=== PATIENT | male | born 1945 | race American Indian/Alaskan Native ===

== ENCOUNTER 2020-07-02 15:15 | Emergency (ER) | payer MEDICARE ==
[~2020-07-02] VITALS: Ht 175.3 cm; Wt 77.1 kg
[2020-07-02 15:24] VITALS: BP 129/61
[2020-07-02] MEDS ORDERED: ERYTHROMYCIN E3.5 G2 OPHTHALMIC (17:11)
== END 2020-07-02 18:16 | disposition home or self-care (01) ==
LOC: ER 15:15
DX: S05.01XA Injury of conjunctiva and corneal abrasion without foreign body, right eye, initial encounter (principal); X58.XXXA Exposure to other specified factors, initial encounter; Y93.89 Activity, other specified; Y92.096 Garden or yard of other non-institutional residence as the place of occurrence of the external cause; Y99.8 Other external cause status